=== PATIENT | male | born 1935 | race Caucasian/White ===

== ENCOUNTER 2018-01-09 18:51 | Emergency (ER) | payer MEDICARE, OTHER ==
--- NOTE | 2018-01-09 19:33 | EDM.PDOC ---
ED HPI GENERAL MEDICAL PROBLEM - General Chief Complaint: ENT Problem Stated Complaint: NOSEBLEED Time Seen by Provider: 01/09/18 19:15 Source of Information: Reports: Patient History Limitations: Reports: No Limitations - History of Present Illness INITIAL COMMENTS - FREE TEXT/NARRATIVE: Started to have a nose bleed this am; lasted about 1.5 hours. It stopped on its own. This evening, went out in the boat, and when he was getting off, nose started to bleed again. He is on coumadin for a fib. Onset: Today Location: Reports: Head Severity: Moderate Improves with: Reports: None Worsens with: Reports: None Associated Symptoms: Reports: No Other Symptoms - Related Data Allergies Allergy/AdvReac Type Severity Reaction Status Date / Time No Known Allergies Allergy Verified 01/09/18 19:07 Home Meds: Home Meds Cetirizine [ZyrTEC] 10 mg PO DAILY 01/09/18 [History] Simvastatin [Zocor] 20 mg PO BEDTIME 01/09/18 [History] Warfarin [Coumadin] 7.5 mg PO ASDIRECTED 01/09/18 [History] Warfarin [Coumadin] 10 mg PO ASDIRECTED 01/09/18 [History] Past Medical History Cardiovascular History: Reports: Afib Musculoskeletal History: Reports: Back Pain, Chronic - Past Surgical History HEENT Surgical History: Reports: Tonsillectomy, Other (See Below) Other HEENT Surgeries/Procedures: broken nose Social & Family History - Tobacco Use Smoking Status *Q: Never Smoker - Caffeine Use Caffeine Use: Reports: Coffee ED ROS GENERAL - Review of Systems Review Of Systems: ROS reveals no pertinent complaints other than HPI. ED EXAM, GENERAL - Physical Exam Exam: See Below Exam Limited By: No Limitations General Appearance: Alert, WD/WN, No Apparent Distress Nose: Other (left nare, no obvious area that is bleeding, right, posterior, passage difficult to see) Throat/Mouth: Other (back of throat, noted blood, clears with spitting) Neck: Normal Inspection, Non-Tender, Full Range of Motion Respiratory/Chest: No Respiratory Distress, Lungs Clear, Normal Breath Sounds Cardiovascular: Regular Rate, Rhythm Neurological: Alert, Oriented, CN II-XII Intact, Normal Cognition, Normal Gait Psychiatric: Normal Affect, Normal Mood Skin Exam: Warm, Dry Course - Vital Signs Last Recorded V/S: Last Vital Signs Temp 97.8 F 01/09/18 19:06 Pulse 64 01/09/18 19:06 Resp 16 01/09/18 19:06 BP 138/90 01/09/18 20:37 Pulse Ox 94 L 01/09/18 19:06 - Orders/Labs/Meds Labs: Laboratory Tests 01/09/18 01/09/18 Range/Units 19:43 19:43 WBC 5.8 (4.5-11.0) K/uL RBC 4.89 (4.30-5.90) M/uL Hgb 14.4 (12.0-15.0) g/dL Hct 43.4 (40.0-54.0) % MCV 89 (80-98) fL MCH 29 (27-31) pg MCHC 33 (32-36) % Plt Count 189 (150-400) K/uL Neut % (Auto) 50 (36-66) % Lymph % (Auto) 36 (24-44) % [place] % (Auto) 9 H (2-6) % Eos % (Auto) 5 H (2-4) % Baso % (Auto) 1 (0-1) % PT 24.5 H (9.5-12.0) sec INR 2.22 H (0.80-1.20) - Re-Assessments/Exams Free Text/Narrative Re-Assessment/Exam: 01/09/18 21:34 anterior and posterior rhino rocket applied to the right nare without difficulty ; Tolerated well. Departure - Departure Time of Disposition: 20:45 Disposition: Home, Self-Care 01 Condition: Fair Clinical Impression: Epistaxis - Discharge Information Instructions: Nosebleed, Adult Referrals: PCP,None [Primary Care Provider] - Forms: ED Department Discharge Additional Instructions: Hold coumadin and aspirin tonight and tomorrow Resume Wednesday If bleeding persists, go to the ER ([place] would be best, they have Ear, nose and throat) If concerns that you are not stable, come to our ER or diall 911. Ice chips, crackers; try not to swallow blood clots. Best of luck; pleasure to meet you and your family. - Problem List & Annotations (1) Epistaxis SNOMED Code(s): 352092634 Code(s): R04.0 - EPISTAXIS Status: Acute Priority: Medium - Problem List Review Problem List Initiated/Reviewed/Updated: Yes
== END 2018-01-09 20:56 | disposition home or self-care (01) ==
LOC: JP.ED 18:51 → EDBD 18:51 → JP.ED 20:56
DX: R04.0 Epistaxis (principal); Z79.899 Other long term (current) drug therapy
CPT/HCPCS: 30903; 30905; 36415; 85025; 85610; 99284-25